=== PATIENT | female | born 1965 | race Caucasian/White ===

== ENCOUNTER → 2019-05-10 | Outpatient (CLI) | payer OTHER | LOC: MAMMO 13:00 | DX: Z12.31 Encounter for screening mammogram for malignant neoplasm of breast (principal); N64.89 Other specified disorders of breast ==

== ENCOUNTER → 2019-05-16 | Day surgery (SDC) | payer OTHER | LOC: MSO 07:34 | DX: Z12.11 Encounter for screening for malignant neoplasm of colon (principal); Z80.0 Family history of malignant neoplasm of digestive organs; Z83.42 Family history of familial hypercholesterolemia | CPT/HCPCS: 00812; J2704; J3010; J7120 ==

== ENCOUNTER → 2019-05-19 | Outpatient (CLI) | payer OTHER | LOC: MAMMO 12:23 | DX: R92.2 Inconclusive mammogram (principal) ==